=== PATIENT | female | born 1965 ===

== ENCOUNTER 2021-01-07 05:36 | Inpatient (IN) | payer MEDICARE, MEDICAID ==
[~2021-01-07] VITALS: Ht 160 cm; Wt 64.6 kg
[2021-01-07] MEDS ORDERED: SODIUM CHLORIDE FLUSH 10ML SYR IVF ONE (06:00)
[2021-01-07] MEDS ORDERED: SODIUM CHLORIDE 0.9% 1,000 ML IV ONE (06:00)
--- NOTE | 2021-01-07 06:05 | NUR ---
EMS SOFT RESTRAINTS REMOVED UPON ARRIVAL.
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
[2021-01-07 06:12] LABS: MEAN CORPUSCULAR HEMOGLOBIN 32.3 pg (27.0-34.8); MEAN CORPUSCULAR HGB CONC 32.6 g/dL (32.4-35.8); MEAN PLATELET VOLUME 7.3 fL (7.4-10.4); PLATELET COUNT 362 x10^3/uL (130-400); RED BLOOD COUNT 4.21 x10^6/uL (3.82-5.3); RED CELL DISTRIBUTION WIDTH 13.5 % (9.6-15.2)
[2021-01-07 06:25] LABS: ALANINE AMINOTRANSFERASE 19 U/L (12-78); ALBUMIN 3.5 g/dL (3.4-5.0); ANION GAP 30 mmol/L (5-15); CALCIUM 7.5 mg/dL (8.5-10.1); CHLORIDE 102 mmol/L (98-107); CREATININE 1.15 mg/dL (0.55-1.02)
[2021-01-07 06:29] LABS: ALKALINE PHOSPHATASE 110 U/L (45-117); BILIRUBIN,TOTAL 0.4 mg/dL (0.2-1.0); TOTAL PROTEIN 6.9 g/dL (6.4-8.2)
[2021-01-07] MEDS ORDERED: VANCOMYCIN PER PHARMACY MC ONE (06:30)
[2021-01-07] MEDS ORDERED: PLEASE ENTER ALLERGIES MC SCH (06:30)
[2021-01-07] MEDS ORDERED: PIPERACILLIN/TAZO 4.5 GM in SODIUM CHLORIDE 0.9% 100 ML IVPB ONE (06:30)
--- NOTE | 2021-01-07 06:31 | NUR ---
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
--- NOTE | 2021-01-07 06:35 | NUR ---
RECTAL TEMP 95.5. ERP UPDATED, WARMING MEASURES IN PLACE.
[2021-01-07 06:37] LABS: FIO2 ROOM AIR %
[2021-01-07 06:37] LABS: BAND#(MANUAL) 3.83 x10^3/uL; BANDS%(MANUAL) 17 % (0-7); LYMPH#(MANUAL) 1.13 x10^3/uL (1-3.4); LYMPHS% (MANUAL) 5 % (22-44); METAMYELOCYTES# (MANUAL) 0.23 x10^3/uL (0-0); METAMYELOCYTES% (MANUAL) 1 % (0-1); MONOS#(MANUAL) 1.58 x10^3/uL (0.3-2.7); MONOS% (MANUAL) 7 % (2-9); SEG#(MANUAL) 15.75 x10^3/uL (1.8-6.8); SEGS% (MANUAL) 70 % (42-75)
[2021-01-07 06:38] LABS: <RBC MORPHOLOGY> NORMAL; PMNS WITH VACUOLES 1+
[2021-01-07 06:39] LABS: <PLATELET ESTIMATE> ADEQUATE; <PLT MORPHOLOGY> NORMAL PLT MORPH
--- NOTE | 2021-01-07 06:47 | NUR ---
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
[2021-01-07] MEDS ORDERED: PLEASE ENTER HEIGHT MC SCH (07:00)
[2021-01-07] MEDS ORDERED: REGULAR INSULIN 100 UNITS in SODIUM CHLORIDE 0.9% 99 ML IV PRN ×2 (07:00→10:30)
[2021-01-07] MEDS ORDERED: VANCOMYCIN 1,500 MG in SODIUM CHLORIDE 0.9% 250 ML IV ONE ×2 (07:00→11:00)
[2021-01-07] MEDS ORDERED: NS + 40MEQ KCL 1,000 ML IV ONE ×2 (07:00→07:16)
--- NOTE | 2021-01-07 07:06 | NUR ---
MED ROSA FROM PHARMACY.
--- NOTE | 2021-01-07 07:07 | NUR ---
REPORT TO ROBERTO ALATORRE. PT RESTING ON [employer] W/ SIDE RAILS UPX2. CONNECTED TO ALL MONITORING. RESP EVEN AND UNLABORED,
--- NOTE | 2021-01-07 07:10 | NUR ---
ANATOLIYAR RPT REC'D AND ASSUMED PT CARE.
--- NOTE | 2021-01-07 07:11 | NUR ---
ZOSYN INFUSING W/O DIFFICULTY, NS @ 250ML/HR. BENJAMIN HUGGER BLANKET IN PLACE, RECTAL TEMP PROBE. TEMMP 97/5. PT LOCKE WITH PURPOSE BUT DOES NOT FOLLOW COMMANDS, PUPILS = AND SLUGGISHLY REACTIVE.
[2021-01-07 07:26] LABS: ACETONE, SERUM Large (80mg/dL) (Negative)
[2021-01-07] MEDS ORDERED: SODIUM BICARB 8.4%, 50ML SYRINGE ONE ×2 (07:29→07:55)
[2021-01-07] MEDS ORDERED: SODIUM BICARB 8.4%, 50ML SYRINGE IVPush ONE ×2 (07:30→08:00)
[2021-01-07] MEDS: PROPOFOL 100 ML IV PRN ×4 (08:16→23:57)
[2021-01-07] MEDS ORDERED: MIDAZOLAM 1 MG/ML, 2ML IVPush ONE (09:00)
[2021-01-07] MEDS ORDERED: ACETAMINOPHEN 650 MG SUPP PR ONE (09:00)
[2021-01-07] MEDS ORDERED: ETOMIDATE 20 MG/10 ML IV ONE (09:00)
[2021-01-07] MEDS ORDERED: SUCCINYLCHOLINE 20 MG/ML, 10ML IVPush ONE (09:00)
--- NOTE | 2021-01-07 09:38 | NUR ---
LATE ENTRY 0750, DR BLANTON AT BEDSIDE. ASSESSMENT, POC, INCLUDING PLAN FOR INTUBATION DISCUSSED AND QUESTIONS ANSWERED. ADDITIONAL BICARB ORDERED AND GIVEN NOTED.
--- NOTE | 2021-01-07 09:39 | NUR ---
LATE ENTRY FOR EVENTS 0810 - 0850, DR NIXON AT BEDSIDE, PT MED NOTED FOR INTUBATION. PT INTUBATED W/O DIFFICULTY AND VENT SETTINGS NOTED, AC20/400/30/5 8.0 22CM AT LIP. RIGHT IJ CENTRAL LINE INSERTED BY DR NIXON. ORAL NGT INSERTED AND PLACED TO LOW INTERMITANT SUCTION. POST PROCEDURE PCXR COMPLETED.
--- NOTE | 2021-01-07 09:42 | NUR ---
LATE ENTRY FOR 909, DR THOMPSON AT BEDSIDE, SBAR RPT PROVIDED AND QUESTIONS ANSWERED.
--- NOTE | 2021-01-07 09:42 | NUR ---
SUNSHINE SRINIVASAN FOR 0800, SPOKE VIA PHONE WITH DAUGHTER RALPH, PT ASSESSMENT AND POC DISCUSSED. QUESTIONS ANSWERED.
--- NOTE | 2021-01-07 09:43 | NUR ---
LATE ENTRY FOR 854, UPDATED DAUGHTER RALPH RE: INTUBATION. QUESTIONS ANSWERED. ADVISED DAUGHTER TO COME TO NEON. RALPH VERBALIZED THAT SHE WILL UPDATE HER SISTER TAI. CURRENTLY RALPH HAS NOT BEEN ABLE TO GET THROUGH TO [employer] CELL PHONE.
[2021-01-07] MEDS ORDERED: ACETAMINOPHEN 650 MG SUPP ONE (09:53)
--- NOTE | 2021-01-07 10:09 | NUR ---
CRYSTAL (DAUGHTER) [phone], TAI (DAUGHTER) [phone] PTS Tara YANG
[2021-01-07] MEDS ORDERED: SODIUM CHLORIDE 0.9% 1,000ML IVBOLUS ONE (10:30)
[2021-01-07] MEDS ORDERED: VANCOMYCIN PMX 1GM/200ML 200 ML IV ONE (10:30)
[2021-01-07] MEDS ORDERED: MAGNESIUM SULFATE PMX 2GM/50ML 50 ML IV ONE (10:30)
[2021-01-07] MEDS ORDERED: GLUCAGON 1 MG IM PRN (10:30)
[2021-01-07] MEDS ORDERED: DEXTROSE 4 GM TAB.CHEW PO PRN (10:30)
[2021-01-07] MEDS ORDERED: VANCOMYCIN PER PHARMACY MC PRN (10:30)
[2021-01-07] MEDS ORDERED: D5%-0.45NACL+KCL 20MEQ 1,000 ML IV SCH (10:43)
[2021-01-07] MEDS ORDERED: PHARMACOKINETIC MONITORING MC PRN (11:00)
[2021-01-07 11:07] LABS: ANION GAP 23 mmol/L (5-15); CALCIUM 7.5 mg/dL (8.5-10.1); CHLORIDE 112 mmol/L (98-107); CREATININE 1.12 mg/dL (0.55-1.02)
[2021-01-07 11:11] LABS: TROPONIN I 0.016 ng/mL (0.000-0.045)
[2021-01-07] MEDS ORDERED: PHARMACY MAY ADJ FOR RENAL FX MC SCH (11:30)
[2021-01-07] MEDS: PIPERACILLIN/TAZO 3.375 GM in DEXTROSE 5% 50 ML IV SCH ×3 (11:30→22:55)
[2021-01-07] MEDS ORDERED: MIDAZOLAM 1 MG/ML, 5ML ONE (11:36)
[2021-01-07] MEDS ORDERED: PROPOFOL 10 MG/ML, 100ML IV ONE (11:36)
[2021-01-07] MEDS ORDERED: SUCCINYLCHOLINE 20 MG/ML, 10ML ONE (11:36)
[2021-01-07] MEDS ORDERED: ETOMIDATE 20 MG/10 ML ONE (11:36)
[2021-01-07 12:36] LABS: MICROSCOPIC AUTO
[2021-01-07] MEDS: ENOXAPARIN 40 MG/0.4 ML SQ SCH (14:19)
[2021-01-07] MEDS: PANTOPRAZOLE 40 MG IV IVPush SCH (14:19)
[2021-01-07] MEDS: DEXTROSE 50%, 50ML SYRINGE IVPush PRN (16:19)
[2021-01-07 16:41] LABS: ANION GAP 13 mmol/L (5-15); CALCIUM 7.5 mg/dL (8.5-10.1); CHLORIDE 114 mmol/L (98-107); CREATININE 0.87 mg/dL (0.55-1.02)
[2021-01-07 16:45] LABS: TROPONIN I < 0.015 ng/mL (0.000-0.045)
[2021-01-07] MEDS ORDERED: POTASSIUM CHLORIDE PMX 100 ML IV ONE (17:30)
[2021-01-07] MEDS: SODIUM CHLORIDE 0.9% 1,000 ML IV SCH (19:28)
[2021-01-07] MEDS: D5%-0.45NACL+KCL 20MEQ 1,000 ML IV SCH (19:43)
[2021-01-07] MEDS: SODIUM CHLORIDE FLUSH 10ML SYR IVF SCH (19:43)
[2021-01-07 20:48] LABS: ANION GAP 15 mmol/L (5-15); CALCIUM 7.7 mg/dL (8.5-10.1); CHLORIDE 112 mmol/L (98-107)
[2021-01-08 00:16] LABS: ANION GAP 11 mmol/L (5-15); CALCIUM 7.8 mg/dL (8.5-10.1); CHLORIDE 114 mmol/L (98-107); CREATININE 0.91 mg/dL (0.55-1.02)
[2021-01-08 00:22] LABS: TROPONIN I 0.016 ng/mL (0.000-0.045)
[2021-01-08] MEDS: D5%-0.45NACL+KCL 20MEQ 1,000 ML IV SCH ×2 (02:28→11:36)
[2021-01-08] MEDS: PROPOFOL 100 ML IV PRN ×2 (03:50→07:53)
[2021-01-08] MEDS: PIPERACILLIN/TAZO 3.375 GM in DEXTROSE 5% 50 ML IV SCH ×4 (04:56→23:10)
[2021-01-08 06:05] LABS: BASOPHILS % (AUTO) 1 % (0-1); EOSINOPHILS % (AUTO) 1 % (1-7); LYMPHOCYTES % (AUTO) 23 % (22-44); MEAN CORPUSCULAR HEMOGLOBIN 32.6 pg (27.0-34.8); MEAN CORPUSCULAR HGB CONC 34.9 g/dL (32.4-35.8); MEAN PLATELET VOLUME 7.3 fL (7.4-10.4); MONOCYTES % (AUTO) 7 % (2-9); NEUTROPHILS % (AUTO) 69 % (42-75); PLATELET COUNT 251 x10^3/uL (130-400); RED BLOOD COUNT 3.75 x10^6/uL (3.82-5.3); RED CELL DISTRIBUTION WIDTH 13.8 % (9.6-15.2)
[2021-01-08 06:10] LABS: ALBUMIN 2.5 g/dL (3.4-5.0); CALCIUM 7.7 mg/dL (8.5-10.1); CHLORIDE 115 mmol/L (98-107)
[2021-01-08 06:24] LABS: ALANINE AMINOTRANSFERASE 17 U/L (12-78); ALKALINE PHOSPHATASE 73 U/L (45-117); ANION GAP 9 mmol/L (5-15); BILIRUBIN,TOTAL 0.3 mg/dL (0.2-1.0); CREATININE 0.66 mg/dL (0.55-1.02); TOTAL PROTEIN 5.4 g/dL (6.4-8.2)
[2021-01-08] MEDS: PANTOPRAZOLE 40 MG IV IVPush SCH (06:39)
[2021-01-08] MEDS ORDERED: POTASSIUM CHLORIDE 40 MEQ in SODIUM CHLORIDE 0.9% 100 ML IV ONE ×3 (07:00→18:30)
[2021-01-08] MEDS ORDERED: POTASSIUM PHOSPHATE 44 MEQ in SODIUM CHLORIDE 0.9% 500 ML IV ONE ×2 (07:00→12:00)
[2021-01-08] MEDS: MORPHINE SULFATE 4 MG/ML, 1ML IVPush PRN ×4 (07:53→19:08)
[2021-01-08] MEDS: VANCOMYCIN 1,200 MG in SODIUM CHLORIDE 0.9% 250 ML IV SCH ×2 (10:33→19:55)
[2021-01-08] MEDS ORDERED: HALOPERIDOL 5 MG/ML ONE ×2 (10:44→10:50)
[2021-01-08] MEDS: SODIUM CHLORIDE FLUSH 10ML SYR IVF SCH ×2 (10:55→20:28)
[2021-01-08] MEDS: DEXMEDETOMIDINE 400 MCG in SODIUM CHLORIDE 0.9% 96 ML IV PRN ×2 (10:55→13:50)
[2021-01-08] MEDS ORDERED: OPIUM/BELLADONNA SUPP.RECT 16.2-60 MG PR PRN (11:00)
[2021-01-08] MEDS ORDERED: HALOPERIDOL 5 MG/ML IV ONE ×3 (11:00→11:30)
[2021-01-08] MEDS: ENOXAPARIN 40 MG/0.4 ML SQ SCH (11:36)
[2021-01-08] MEDS: DEXTROSE 50%, 50ML SYRINGE IVPush PRN (12:00)
[2021-01-08] MEDS: SODIUM CHLORIDE 0.9% 1,000 ML IV SCH (13:35)
[2021-01-08 14:57] LABS: ANION GAP 9 mmol/L (5-15); CHLORIDE 116 mmol/L (98-107)
[2021-01-08 14:58] LABS: CREATININE 0.66 mg/dL (0.55-1.02)
[2021-01-08] MEDS ORDERED: FLUT1DIS IH (15:20)
[2021-01-08] MEDS ORDERED: HYDR50CA2 PO (15:20)
[2021-01-08] MEDS ORDERED: PRAZ1CAP2 PO (15:20)
[2021-01-08] MEDS ORDERED: ALBU18HF INH (15:20)
[2021-01-08] MEDS ORDERED: VENL75CA6 PO (15:20)
[2021-01-08] MEDS ORDERED: VENL150C6 PO (15:20)
[2021-01-08] MEDS ORDERED: FLUT9.9S NS (15:20)
[2021-01-08] MEDS ORDERED: PANT20TA4 PO (15:20)
[2021-01-08] MEDS ORDERED: SULF500T47 PO (15:20)
[2021-01-08] MEDS ORDERED: PRAV20TA2 PO (15:20)
[2021-01-08] MEDS ORDERED: GABA300C PO (15:20)
[2021-01-08] MEDS ORDERED: CANA300T PO (15:20)
[2021-01-08] MEDS ORDERED: NORT25CA78 PO (15:20)
[2021-01-08] MEDS ORDERED: BUSP30TA PO (15:20)
[2021-01-08] MEDS ORDERED: MIRT-14 PO (15:20)
[2021-01-08] MEDS ORDERED: PROM25TA10 PO (15:20)
[2021-01-08] MEDS ORDERED: ACYC-40 PO (15:20)
[2021-01-08] MEDS ORDERED: BACL-19 PO (15:20)
[2021-01-08] MEDS ORDERED: INSU100I13 SQ (15:20)
[2021-01-08] MEDS ORDERED: DEXMEDETOMIDINE 1,000 MCG in SODIUM CHLORIDE 0.9% 240 ML IV PRN (17:00)
[2021-01-08] MEDS ORDERED: HYDROXYZINE PAMOATE 50MG CAP PO PRN (17:00)
[2021-01-08] MEDS: INSULIN LISPRO 100 UNITS/ML, PEN SQ-INSULIN SCH ×2 (17:41→20:38)
[2021-01-08] MEDS: SULFASALAZINE 500 MG TABLET PO SCH (20:29)
[2021-01-08] MEDS: GABAPENTIN 300 MG CAPSULE PO SCH (20:29)
[2021-01-08] MEDS: MIRTAZAPINE 15 MG TABLET PO SCH (20:29)
[2021-01-08] MEDS: NORTRIPTYLINE 25 MG CAPSULE PO SCH (20:31)
[2021-01-08] MEDS: PRAZOSIN 1 MG CAPSULE PO SCH (20:35)
[2021-01-08] MEDS: BUSPIRONE 10 MG TABLET PO SCH (21:00)
[2021-01-08 22:02] VITALS: BP 150/87
[2021-01-09 03:01] LABS: BASOPHILS % (AUTO) 1 % (0-1); EOSINOPHILS % (AUTO) 0 % (1-7); LYMPHOCYTES % (AUTO) 30 % (22-44); MEAN CORPUSCULAR HEMOGLOBIN 32.3 pg (27.0-34.8); MEAN CORPUSCULAR HGB CONC 33.8 g/dL (32.4-35.8); MEAN PLATELET VOLUME 7.2 fL (7.4-10.4); MONOCYTES % (AUTO) 7 % (2-9); NEUTROPHILS % (AUTO) 62 % (42-75); PLATELET COUNT 191 x10^3/uL (130-400); RED BLOOD COUNT 3.51 x10^6/uL (3.82-5.3); RED CELL DISTRIBUTION WIDTH 13.6 % (9.6-15.2)
[2021-01-09] MEDS: SODIUM CHLORIDE 0.9% 1,000 ML IV SCH (03:01)
[2021-01-09 03:12] LABS: ALANINE AMINOTRANSFERASE 20 U/L (12-78); ALBUMIN 2.4 g/dL (3.4-5.0); ANION GAP 13 mmol/L (5-15); CALCIUM 7.9 mg/dL (8.5-10.1); CHLORIDE 116 mmol/L (98-107); CREATININE 0.53 mg/dL (0.55-1.02)
[2021-01-09 03:14] LABS: ALKALINE PHOSPHATASE 70 U/L (45-117); BILIRUBIN,TOTAL 0.6 mg/dL (0.2-1.0); TOTAL PROTEIN 5.4 g/dL (6.4-8.2)
[2021-01-09] MEDS: PIPERACILLIN/TAZO 3.375 GM in DEXTROSE 5% 50 ML IV SCH ×4 (04:46→23:54)
[2021-01-09] MEDS: SULFASALAZINE 500 MG TABLET PO SCH ×4 (05:16→20:56)
[2021-01-09] MEDS: INSULIN LISPRO 100 UNITS/ML, PEN SQ-INSULIN SCH ×4 (06:27→20:57)
[2021-01-09] MEDS: MORPHINE SULFATE 4 MG/ML, 1ML IVPush PRN ×2 (06:46→07:32)
[2021-01-09] MEDS: BUSPIRONE 10 MG TABLET PO SCH ×2 (07:35→20:56)
[2021-01-09] MEDS: SODIUM CHLORIDE FLUSH 10ML SYR IVF SCH ×2 (07:35→20:55)
[2021-01-09] MEDS: GABAPENTIN 300 MG CAPSULE PO SCH ×3 (07:35→20:56)
[2021-01-09] MEDS: PANTOPRAZOLE 40 MG IV IVPush SCH (07:35)
[2021-01-09] MEDS: VENLAFAXINE 75 MG CAP ER PO SCH (07:35)
[2021-01-09] MEDS: VANCOMYCIN 1,200 MG in SODIUM CHLORIDE 0.9% 250 ML IV SCH (08:36)
[2021-01-09] MEDS ORDERED: HYDROXYZINE PAMOATE 25MG CAP PO PRN (09:00)
[2021-01-09] MEDS: ENOXAPARIN 40 MG/0.4 ML SQ SCH (11:08)
[2021-01-09] MEDS: ACETAMINOPHEN 325 MG TABLET PO PRN ×2 (11:23→17:05)
[2021-01-09] MEDS ORDERED: MORPHINE SULFATE 4 MG/ML, 1ML IVPush PRN (11:30)
[2021-01-09] MEDS ORDERED: CALCIUM CARBONATE 500 MG TAB.CHEW PO PRN (11:30)
[2021-01-09] MEDS: INSULIN GLARGINE 100 UNITS/ML, PEN SQ-INSULIN SCH (12:01)
[2021-01-09 14:20] VITALS: BP 118/83
[2021-01-09 19:47] VITALS: BP 121/75
[2021-01-09] MEDS: NORTRIPTYLINE 25 MG CAPSULE PO SCH (20:56)
[2021-01-09] MEDS: PRAZOSIN 1 MG CAPSULE PO SCH (20:56)
[2021-01-09] MEDS: MIRTAZAPINE 15 MG TABLET PO SCH (20:56)
[2021-01-10 02:05] VITALS: BP 150/83
[2021-01-10] MEDS: ACETAMINOPHEN 325 MG TABLET PO PRN (03:53)
[2021-01-10] MEDS: PIPERACILLIN/TAZO 3.375 GM in DEXTROSE 5% 50 ML IV SCH ×3 (05:26→20:10)
[2021-01-10] MEDS: SULFASALAZINE 500 MG TABLET PO SCH ×4 (05:46→20:34)
[2021-01-10] MEDS: INSULIN LISPRO 100 UNITS/ML, PEN SQ-INSULIN SCH ×4 (07:00→20:32)
[2021-01-10 07:12] LABS: ANION GAP 13 mmol/L (5-15); CALCIUM 8.4 mg/dL (8.5-10.1); CHLORIDE 114 mmol/L (98-107); CREATININE 0.45 mg/dL (0.55-1.02)
[2021-01-10] MEDS ORDERED: POTASSIUM CHLORIDE 20 MEQ TAB.ER.PRT PO ONE (07:30)
[2021-01-10 08:00] LABS: BASOPHILS % (AUTO) 1 % (0-1); EOSINOPHILS % (AUTO) 0 % (1-7); LYMPHOCYTES % (AUTO) 29 % (22-44); MEAN CORPUSCULAR HEMOGLOBIN 32.4 pg (27.0-34.8); MEAN CORPUSCULAR HGB CONC 34.5 g/dL (32.4-35.8); MEAN PLATELET VOLUME 8.2 fL (7.4-10.4); MONOCYTES % (AUTO) 9 % (2-9); NEUTROPHILS % (AUTO) 62 % (42-75); PLATELET COUNT 182 x10^3/uL (130-400); RED BLOOD COUNT 3.74 x10^6/uL (3.82-5.3); RED CELL DISTRIBUTION WIDTH 13.9 % (9.6-15.2)
[2021-01-10 09:42] VITALS: BP 156/102
[2021-01-10] MEDS: SODIUM CHLORIDE FLUSH 10ML SYR IVF SCH ×2 (10:15→20:35)
[2021-01-10] MEDS: BUSPIRONE 10 MG TABLET PO SCH ×2 (10:15→20:34)
[2021-01-10] MEDS: VENLAFAXINE 75 MG CAP ER PO SCH (10:15)
[2021-01-10] MEDS: GABAPENTIN 300 MG CAPSULE PO SCH ×3 (10:15→20:33)
[2021-01-10] MEDS: INSULIN GLARGINE 100 UNITS/ML, PEN SQ-INSULIN SCH (10:17)
[2021-01-10] MEDS: ENOXAPARIN 40 MG/0.4 ML SQ SCH (12:57)
[2021-01-10 13:31] VITALS: BP 165/94
[2021-01-10] MEDS ORDERED: MAGNESIUM SULFATE PMX 2GM/50ML 50 ML IV ONE (18:00)
[2021-01-10 20:04] VITALS: BP 162/94
[2021-01-10] MEDS: MIRTAZAPINE 15 MG TABLET PO SCH (20:33)
[2021-01-10] MEDS: NORTRIPTYLINE 25 MG CAPSULE PO SCH (20:33)
[2021-01-10] MEDS: PRAZOSIN 1 MG CAPSULE PO SCH (20:34)
[2021-01-11] MEDS: PIPERACILLIN/TAZO 3.375 GM in DEXTROSE 5% 50 ML IV SCH ×3 (02:05→14:29)
[2021-01-11 02:18] VITALS: BP 113/74
[2021-01-11] MEDS: SULFASALAZINE 500 MG TABLET PO SCH ×3 (06:00→15:32)
[2021-01-11 06:17] LABS: BASOPHILS % (AUTO) 1 % (0-1); EOSINOPHILS % (AUTO) 0 % (1-7); LYMPHOCYTES % (AUTO) 39 % (22-44); MEAN CORPUSCULAR HEMOGLOBIN 32.4 pg (27.0-34.8); MEAN CORPUSCULAR HGB CONC 34.2 g/dL (32.4-35.8); MEAN PLATELET VOLUME 7.2 fL (7.4-10.4); MONOCYTES % (AUTO) 9 % (2-9); NEUTROPHILS % (AUTO) 52 % (42-75); PLATELET COUNT 220 x10^3/uL (130-400); RED BLOOD COUNT 3.71 x10^6/uL (3.82-5.3)
[2021-01-11 06:25] LABS: CHLORIDE 109 mmol/L (98-107)
[2021-01-11 06:32] LABS: ALANINE AMINOTRANSFERASE 17 U/L (12-78); ALBUMIN 2.4 g/dL (3.4-5.0); ALKALINE PHOSPHATASE 74 U/L (45-117); ANION GAP 11 mmol/L (5-15); BILIRUBIN,TOTAL 0.5 mg/dL (0.2-1.0); CALCIUM 8.2 mg/dL (8.5-10.1); CREATININE 0.41 mg/dL (0.55-1.02); TOTAL PROTEIN 6.1 g/dL (6.4-8.2)
[2021-01-11 06:35] VITALS: BP 134/88
[2021-01-11] MEDS: INSULIN LISPRO 100 UNITS/ML, PEN SQ-INSULIN SCH ×3 (08:42→15:36)
[2021-01-11] MEDS: INSULIN GLARGINE 100 UNITS/ML, PEN SQ-INSULIN SCH (08:44)
[2021-01-11] MEDS: BUSPIRONE 10 MG TABLET PO SCH (08:45)
[2021-01-11] MEDS: VENLAFAXINE 75 MG CAP ER PO SCH (08:45)
[2021-01-11] MEDS: GABAPENTIN 300 MG CAPSULE PO SCH ×2 (08:45→15:33)
[2021-01-11] MEDS: SODIUM CHLORIDE FLUSH 10ML SYR IVF SCH (08:46)
[2021-01-11] MEDS ORDERED: POTASSIUM CHLORIDE 20 MEQ TAB.ER.PRT PO ONE (09:30)
[2021-01-11] MEDS: ENOXAPARIN 40 MG/0.4 ML SQ SCH (11:53)
[2021-01-11 12:56] VITALS: BP 124/86
[2021-01-11] MEDS ORDERED: INSU100I11 SQ-INSULIN (13:36)
[2021-01-11] MEDS ORDERED: CEFD300C37 PO ×2 (13:37)
[2021-01-11] MEDS ORDERED: DOXY100C2 PO ×2 (13:38)
[2021-01-11] MEDS ORDERED: AMOX1TAB64 PO (13:41)
== END 2021-01-11 17:04 | disposition home or self-care (01) | DRG 871 ==
LOC: SUATTDRO 07:16 → ED 07:46 → CCU 10:31 → 5SO 01-08 19:26
PROVIDERS: ADMIT Internal Medicine; ATTEND Hospitalist
PROC: 5A1945Z Respiratory Ventilation, 24-96 Consecutive Hours (ICD-10-PCS; principal; 2021-01-07)
PROC: 0BH17EZ Insertion of Endotracheal Airway into Trachea, Via Natural or Artificial Opening (ICD-10-PCS; 2021-01-07)
PROC: 02HV33Z Insertion of Infusion Device into Superior Vena Cava, Percutaneous Approach (ICD-10-PCS; 2021-01-07)
PROC: 0T9B70Z Drainage of Bladder with Drainage Device, Via Natural or Artificial Opening (ICD-10-PCS; 2021-01-07)
PROC: B548ZZA Ultrasonography of Superior Vena Cava, Guidance (ICD-10-PCS; 2021-01-07)
DX: A41.9 Sepsis, unspecified organism (principal); E10.11 Type 1 diabetes mellitus with ketoacidosis with coma; G93.41 Metabolic encephalopathy; J18.9 Pneumonia, unspecified organism; Z99.11 Dependence on respirator [ventilator] status; K51.90 Ulcerative colitis, unspecified, without complications; R65.20 Severe sepsis without septic shock; E53.8 Deficiency of other specified B group vitamins; E78.5 Hyperlipidemia, unspecified; F32.9 Major depressive disorder, single episode, unspecified; F41.1 Generalized anxiety disorder; F43.10 Post-traumatic stress disorder, unspecified; F43.20 Adjustment disorder, unspecified; G56.03 Carpal tunnel syndrome, bilateral upper limbs; I10 Essential (primary) hypertension; J44.9 Chronic obstructive pulmonary disease, unspecified; M48.061 Spinal stenosis, lumbar region without neurogenic claudication; Z20.822 Contact with and (suspected) exposure to COVID-19; Z78.1 Physical restraint status; Z79.4 Long term (current) use of insulin; Z87.891 Personal history of nicotine dependence; D64.9 Anemia, unspecified; K21.9 Gastro-esophageal reflux disease without esophagitis; E83.42 Hypomagnesemia; Z88.1 Allergy status to other antibiotic agents; Z88.8 Allergy status to other drugs, medicaments and biological substances
CPT/HCPCS: 31500; 36415; 36556; 36600; 71045; 80048; 80053; 80202; 81001; 82010; 82803; 82962; 83036; 83605; 83690; 83735; 83880; 84100; 84443; 84478; 84484; 85025; 87040; 87070; 87081; 87205; 93005; 93306; 94002; 94003; 96361; 96374; 96375; G0378; J1650; J1815; J2250; J2543; J2704; J3370; J3480; U0005; C9113; J0330; J1630; J2270; J3475; J7030; J7040; J7050; U0003